=== PATIENT | male | born 1955 | race Caucasian/White ===

== ENCOUNTER 2019-11-08 15:18 | Emergency (ER) | payer MEDICARE ==
[~2019-11-08] VITALS: Ht 170.2 cm; Wt 57.2 kg
--- NOTE | 2019-11-08 15:32 | NUR ---
DARIAN HUDSON AT BEDSIDE FOR MSE.
[2019-11-08] MEDS ORDERED: BROM5CAP3 PO (15:36)
[2019-11-08] MEDS ORDERED: BENZ1TAB7 PO (15:36)
[2019-11-08] MEDS ORDERED: DOCU100C36 PO (15:41)
[2019-11-08] MEDS ORDERED: ESOM40CA PO (15:41)
[2019-11-08] MEDS ORDERED: SENN-261 PO (15:41)
[2019-11-08] MEDS ORDERED: FERR325T28 PO (15:41)
[2019-11-08] MEDS ORDERED: L. A1CAP5 PO (15:41)
[2019-11-08] MEDS ORDERED: MULT1TAB73 PO (15:41)
[2019-11-08] MEDS ORDERED: TRAZ-257 PO (15:41)
[2019-11-08] MEDS ORDERED: QUET200T PO (15:41)
[2019-11-08] MEDS ORDERED: [UNRECOGNIZED DRUG - CODE] (15:41)
[2019-11-08] MEDS ORDERED: ASPI81TA31 PO (15:41)
[2019-11-08 15:57] LABS: BASOPHILS % (AUTO) 0.5 % (0.0-2.0); EOSINOPHILS # (AUTO) 0.2 K/uL (0.0-0.7); EOSINOPHILS % (AUTO) 2.7 % (0.0-7.0); HEMATOCRIT 34.2 % (36.7-47.1); HEMOGLOBIN 11.5 g/dL (12.5-16.3); LYMPHOCYTES # (AUTO) 0.9 K/uL (20.0-40.0); LYMPHOCYTES % (AUTO) 13.6 % (20.5-51.5); MEAN CORPUSCULAR HEMOGLOBIN 32.1 uug (23.8-33.4); MEAN CORPUSCULAR HGB CONC 34 g/dL (32.5-36.3); MEAN CORPUSCULAR VOLUME 95.4 fL (73.0-96.2); MONOCYTES # (AUTO) 0.4 K/uL (2.0-10.0); MONOCYTES % (AUTO) 6.3 % (0.0-11.0); NEUTROPHILS # (AUTO) 4.9 K/uL (1.8-8.9); NEUTROPHILS % (AUTO) 76.9 % (38.5-71.5); PLATELET COUNT (AUTO) 168 K/uL (152-348); RED BLOOD CELL COUNT(AUTO) 3.58 MIL/uL (4.06-5.63); WHITE BLOOD COUNT (AUTO) 6.3 K/uL (3.6-10.2)
[2019-11-08 16:02] LABS: CREATININE 0.8 mg/dL (0.6-1.3); POTASSIUM 3.8 mmol/L (3.5-5.1)
[2019-11-08 16:08] LABS: BILIRUBIN,DIRECT 0.1 mg/dL (0.0-0.2); BILIRUBIN,TOTAL 0.3 mg/dL (0.2-1.0); TOTAL PROTEIN, SERUM 7.5 g/dL (6.4-8.2)
--- NOTE | 2019-11-08 17:23 | NUR ---
Patient does not wish to proceed with medical care recommended by Dr. BRISENO. Patient given information related to possible complications, up to and including , which could occur as a result of leaving the hospital at this time. Patient verbalizes understanding of risks involved due to leaving against medical advice. Patient has signed AMA form. ALL BELONGINGS W/ PT. PT SELF-AMBULATED W/O DIFFICULTY. PT D/C UNDER CARE OF PARENTS.
== END 2019-11-08 17:25 | disposition left against medical advice (07) ==
LOC: ER 15:21
DX: S00.12XA Contusion of left eyelid and periocular area, initial encounter (principal); Z79.82 Long term (current) use of aspirin; Z79.899 Other long term (current) drug therapy; W19.XXXA Unspecified fall, initial encounter; Y93.89 Activity, other specified; Y92.89 Other specified places as the place of occurrence of the external cause; Y99.8 Other external cause status
CPT/HCPCS: 36415; 70030-TC; 70450; 70480; 71045; 72125; 85025; 85730; 93005; A4663